=== PATIENT | female | born 1970 | race American Indian/Alaskan Native ===

== ENCOUNTER 2018-03-10 17:19 | Emergency (ER) | payer SELFPAY ==
[2018-03-10 17:25] VITALS: BP 157/97
[2018-03-10 18:08] LABS: Hematocrit 37.9 % (30.3-42.9); Hemoglobin 12.7 gm/dl (10.1-14.3); Mean Corpuscular HGB Conc 34 % (30-34); Mean Corpuscular Hemoglobin 29 pg (28-32); Mean Corpuscular Volume 87 fl (79-97); Platelet Count 312 K/mm3 (140-440); Red Blood Count 4.33 M/mm3 (3.65-5.03); Red Cell Distribution Width 15.9 % (13.2-15.2)
[2018-03-10 18:18] LABS: INR 0.96 (0.87-1.13)
[2018-03-10 18:19] LABS: Partial Thromboplastin Time 30.7 Sec. (24.2-36.6)
[2018-03-10 18:32] LABS: BUN/Creatinine Ratio 10; Blood Urea Nitrogen 9 mg/dL (7-17); Calcium 9.2 mg/dL (8.4-10.2); Hemolysis Index 3
[2018-03-10 19:07] LABS: Total Cells Counted 100
[2018-03-10 19:08] LABS: Anisocytosis Few; Target Cells Few
--- NOTE | 2018-03-10 19:10 | Cat Scan Report ---
FINAL REPORT EXAM: CT HEAD/BRAIN WO CON HISTORY: headache, dizziness, blurred vision in right eye TECHNIQUE: Standard unenhanced CT of the head at 5.0 millimeter axial increments. PRIORS: None. FINDINGS: The ventricular system is normal in size and configuration. There is no evidence for parenchymal volume loss. There is no evidence for mass lesion, mass effect, midline shift, acute intracranial hemorrhage, or acute ischemia/ infarction. No evidence for acute skull fracture is seen. No abnormality in the overlying scalp soft tissues is seen. Visualized paranasal sinuses demonstrates mucosal thickening in the right maxillary and right ethmoid sinuses. IMPRESSION: Chronic sinusitis of the right maxillary and ethmoid sinuses. No acute intracranial process noted.
[2018-03-10] MEDS ORDERED: TYLENOL PO ONE (21:18)
[2018-03-10] MEDS ORDERED: COMPAZINE PO ONE (21:18)
[2018-03-10] MEDS ORDERED: MOTRIN PO ONE (21:18)
[2018-03-10] MEDS ORDERED: NORVASC PO ONE (21:30)
--- NOTE | 2018-03-10 22:50 | Emergency Department Report ---
ED General Adult HPI - General Chief complaint: Headache Stated complaint: HEADACHE/SOB Time Seen by Provider: 03/10/18 21:03 Source: patient Mode of arrival: Ambulatory Limitations: No Limitations - History of Present Illness Initial comments: 1 week of frontal and posterior progressive onset headache. Similar to previous. No light or sound sensitivity. History of migraines. She says sometimes her right eye will get blurry when the pain is bad. Of note, patient also endorses substernal nonradiating chest pain for the past 2-3 weeks. It is intermittent. Pleuritic. Nonexertional. Unaffected by food. Patient smokes one pack per day. She has no family history of ACS or CVA. She has history of hypertension, but is not taking any blood pressure medication at this time. She believes that she used to take amlodipine. Severity scale (0 -10): 8 - Related Data Previous Rx's Medication Instructions Recorded Last Taken Type amLODIPine [Norvasc] 5 mg PO DAILY #30 tab 03/11/18 Unknown Rx Allergies Allergy/AdvReac Type Severity Reaction Status Date / Time No Known Allergies Allergy Verified 03/10/18 21:21 ED Review of Systems ROS: Stated complaint: HEADACHE/SOB Other details as noted in HPI Comment: All other systems reviewed and negative Eyes: vision change Cardiovascular: chest pain Neurological: headache ED Past Medical Hx - Past Medical History Previous Medical History?: Yes Hx Hypertension: Yes Hx Psychiatric Treatment: Yes (bipolar II, PTSD, personality do) Additional medical history: uterine CA - Surgical History Past Surgical History?: No Additional Surgical History: surgery for uterine CA - Social History Smoking Status: Current Every Day Smoker - Medications Home Medications: Home Medications Medication Instructions Recorded Confirmed Last Taken Type amLODIPine [Norvasc] 5 mg PO DAILY #30 tab 03/11/18 Unknown Rx ED Physical Exam - General Limitations: No Limitations General appearance: alert, in no apparent distress - Head Head exam: Present: atraumatic, normocephalic - Eye Eye exam: Present: normal appearance - ENT ENT exam: Present: mucous membranes moist - Neck Neck exam: Present: normal inspection - Respiratory Respiratory exam: Present: normal lung sounds bilaterally. Absent: respiratory distress - Cardiovascular Cardiovascular Exam: Present: regular rate, normal rhythm. Absent: systolic murmur, diastolic murmur, rubs, gallop - GI/Abdominal GI/Abdominal exam: Present: soft, normal bowel sounds. Absent: distended, tenderness, guarding, rebound - Extremities Exam Extremities exam: Present: normal inspection - Back Exam Back exam: Present: normal inspection - Neurological Exam Neurological exam: Present: alert, oriented X3, CN II-XII intact. Absent: motor sensory deficit - Psychiatric Psychiatric exam: Present: normal affect, normal mood - Skin Skin exam: Present: warm, dry, intact, normal color. Absent: rash ED Course Vital Signs 03/10/18 03/10/18 17:21 21:54 Temperature 97.8 F Pulse Rate 91 H Respiratory 20 Rate Blood Pressure 157/97 O2 Sat by Pulse 100 99 Oximetry - Reevaluation(s) Reevaluation #1: On reevaluation, patient feels much improved. She is cleared for discharge. Has been given a prescription for amlodipine to go home with. Patient will follow-up with her family doctor for reevaluation in 3-5 days. 03/11/18 00:21 ED Medical Decision Making - Lab Data Result diagrams: 03/10/18 17:44 03/10/18 17:44 - EKG Data -: EKG Interpreted by Mi EKG shows normal: sinus rhythm, axis, intervals, QRS complexes, ST-T waves Rate: normal - EKG Data Interpretation: no acute changes - Radiology Data Radiology results: report reviewed, image reviewed - Medical Decision Making 47-year-old female with past medical history of hypertension, migraines that presents with headache and chest pain. Vital signs are stable. Patient is well -appearing. No focal neuro deficit appreciated. NIH stroke scale is 0. Visual acuity is at baseline for the patient. CT imaging is unremarkable. EKG is nonischemic. Laboratory doesn't show any evidence of emergent pathology. Low risk by heart score. Low suspicion for ACS. Patient likely is suffering a tension headache. She has been given Tylenol/Motrin/Compazine for her headache. I have low suspicion for CVA event given the patient only ever had right eye blurry vision as a neurologic complaint. It only lasted for a couple minutes when her headache pain was bad. She never had any extremity deficits. History of presentation doesn't appear to be consistent with a central retinal artery occlusion either. Low suspicion for AAA given age, no significant htn, and other dx more likely. - Differential Diagnosis ICH, temporal arteritis, CVA, complex migraine, tension headache Critical care attestation.: If time is entered above; I have spent that time in minutes in the direct care of this critically ill patient, excluding procedure time. ED Disposition Clinical Impression: Tension headache, Chest pain, Hypertension Disposition: TO HOME OR SELFCARE Is pt being admited?: No Does the pt Need Aspirin: No Condition: Stable Instructions: Chest Pain (ED), Tension Headache (ED), Hypertension (ED) Prescriptions: amLODIPine [Norvasc] 5 mg PO DAILY #30 tab Referrals: PRIMARY CARE, [Primary Care Provider] - 3-5 Days
== END 2018-03-11 01:42 | disposition home or self-care (01) ==
LOC: ED 17:19
DX: G44.209 Tension-type headache, unspecified, not intractable (principal); R07.89 Other chest pain; I10 Essential (primary) hypertension; F17.200 Nicotine dependence, unspecified, uncomplicated; F43.10 Post-traumatic stress disorder, unspecified; F31.81 Bipolar II disorder
CPT/HCPCS: 36415; 70450; 80048; 84484; 85007; 85025; 85610; 85670; 85730; 93005; 93010; Q0164

== ENCOUNTER 2018-09-08 20:11 | Emergency (ER) | payer SELFPAY ==
[2018-09-08] MEDS ORDERED: TORADOL IV ONE (20:35)
[2018-09-08] MEDS ORDERED: ZOFRAN IV ONE (20:35)
[2018-09-08] MEDS ORDERED: NACL 0.9% 500 ML 500 ML IV ONE (21:04)
[2018-09-08 21:23] LABS: Hematocrit 39.9 % (30.3-42.9); Hemoglobin 13.7 gm/dl (10.1-14.3); Mean Corpuscular HGB Conc 34 % (30-34); Mean Corpuscular Volume 86 fl (79-97); Platelet Count 274 K/mm3 (140-440); Red Blood Count 4.64 M/mm3 (3.65-5.03); Red Cell Distribution Width 17.3 % (13.2-15.2)
[2018-09-08 21:43] LABS: INR 1.09 (0.87-1.13); Partial Thromboplastin Time 31.3 Sec. (24.2-36.6)
[2018-09-08 22:00] LABS: Alanine Aminotransferase 7 units/L (7-56); Albumin 4.9 g/dL (3.9-5); BUN/Creatinine Ratio 13; Blood Urea Nitrogen 13 mg/dL (7-17); Calcium 9.9 mg/dL (8.4-10.2); Hemolysis Index 20
[2018-09-08] MEDS ORDERED: DILAUDID IV ONE (22:01)
--- NOTE | 2018-09-08 22:26 | Emergency Department Report ---
ED General Adult HPI - General Chief complaint: Back Pain/Injury Stated complaint: BILAT SIDE & BACK PAIN Time Seen by Provider: 09/08/18 20:56 Source: patient, EMS (ems notes not available at time of chart dictation), RN notes reviewed Mode of arrival: Stretcher Limitations: No Limitations - History of Present Illness Initial comments: This is a 47-year-old female who is not known to this provider previously. She does not have a local primary care doctor. She has a history of hypertension. She reports no history of abdominal surgeries. She presents to the emergency room with 3 days of abdominal pain. The abdominal pain started in the left f lank, left upper quadrant, then moved across the epigastric region and then moved to the right upper quadrant. Pain is described as spasming in nature, and was relieved with ketorolac, which was given prior to my evaluation. The patient denies DVT, pulmonary embolus risk factors. She couldn't denies headache, neck pain, chest pain, urinary symptoms, extremity weakness, numbness. The patient reports intermittent extremity cramping as well. She also describes charley horses. This has been going on for a while. It is not new, worsening or different. -: Gradual, days(s) Location: abdomen Radiation: abdomen Severity scale (0 -10): 10 Quality: aching Consistency: now resolved Improves with: medication Worsens with: none Associated Symptoms: other (see history of present illness). denies: confusion, chest pain, cough, diaphoresis, fever/chills, headaches, loss of appetite, malaise, nausea/vomiting, rash, seizure, shortness of breath, syncope, weakness - Related Data Previous Rx's Medication Instructions Recorded Last Taken Type Acetaminophen [Tylenol Arthritis] 650 mg PO Q6HR PRN #30 tablet.er 09/09/18 Unkn own Rx Famotidine [Pepcid] 20 mg PO BID #30 tablet 09/09/18 Unknown Rx Ibuprofen [Motrin] 600 mg PO Q8H PRN #30 tablet 09/09/18 Unknown Rx amLODIPine [Norvasc] 5 mg PO DAILY #30 tab 09/09/18 Unknown Rx Allergies Allergy/AdvReac Type Severity Reaction Status Date / Time No Known Allergies Allergy Verified 03/10/18 21:21 ED Review of Systems ROS: Stated complaint: BILAT SIDE & BACK PAIN Other details as noted in HPI Constitutional: denies: fever, malaise Eyes: denies: vision change ENT: denies: epistaxis Respiratory: denies: cough Cardiovascular: denies: chest pain Gastrointestinal: abdominal pain Genitourinary: denies: dysuria Musculoskeletal: arthralgia, myalgia Skin: denies: lesions Neurological: denies: weakness Psychiatric: denies: anxiety ED Past Medical Hx - Past Medical History Hx Hypertension: Yes Hx Psychiatric Treatment: Yes (bipolar II, PTSD, personality do) Additional medical history: uterine CA, Kidney Cysts - Surgical History Additional Surgical History: surgery for uterine CA - Social History Smoking Status: Current Every Day Smoker Substance Use Type: Marijuana - Medications Home Medications: Home Medications Medication Instructions Recorded Confirmed Last Taken Type Acetaminophen [Tylenol Arthritis] 650 mg PO Q6HR PRN #30 tablet.er 09/09/18 Unknown Rx Famotidine [Pepcid] 20 mg PO BID #30 tablet 09/09/18 Unknown Rx Ibuprofen [Motrin] 600 mg PO Q8H PRN #30 tablet 09/09/18 Unknown Rx amLODIPine [Norvasc] 5 mg PO DAILY #30 tab 09/09/18 Unknown Rx ED Physical Exam - General Limitations: No Limitations General appearance: alert, in no apparent distress - Head Head exam: Present: atraumatic, normocephalic - Eye Eye exam: Present: normal appearance, EOMI. Absent: nystagmus - ENT ENT exam: Present: normal exam, normal orophraynx, mucous membranes moist, normal external ear exam - Neck Neck exam: Present: normal inspection, full ROM. Absent: tenderness, meningismus - Respiratory Respiratory exam: Present: normal lung sounds bilaterally. Absent: respiratory distress - Cardiovascular Cardiovascular Exam: Present: regular rate, normal rhythm, normal heart sounds. Absent: bradycardia, tachycardia, irregular rhythm, systolic murmur, diastolic murmur, rubs, gallop - GI/Abdominal GI/Abdominal exam: Present: soft. Absent: distended, tenderness, guarding, rebound, rigid, pulsatile mass - Extremities Exam Extremities exam: Present: normal inspection, full ROM, other (2+ pulses noted in the bilateral upper, lower extremities. Compartments soft. No long bony tenderness. The pelvis is stable.). Absent: pedal edema, joint swelling, calf tenderness - Back Exam Back exam: Present: normal inspection, full ROM. Absent: tenderness, CVA tenderness (R), paraspinal tenderness, vertebral tenderness - Neurological Exam Neurological exam: Present: alert, oriented X3, CN II-XII intact, other (Extraocular movements intact. Tongue midline. No facial droop. Facial sensation intact to light touch in the V1, V2, V3 distribution bilaterally. 5 and 5 strength in 4 extremities.. Sensation is intact to light touch in 4 extremities.). Absent: motor sensory deficit - Psychiatric Psychiatric exam: Present: normal affect, normal mood - Skin Skin exam: Present: warm, dry, intact, normal color. Absent: rash ED Course Vital Signs 09/08/18 09/08/18 09/08/18 18:35 20:18 20:28 Temperature 97.8 F Pulse Rate 60 73 Respiratory 13 20 Rate Blood Pressure 119/52 180/89 180/89 O2 Sat by Pulse 100 99 100 Oximetry 09/08/18 09/08/18 09/08/18 20:30 20:45 21:00 Temperature Pulse Rate 69 72 76 Respiratory 17 15 18 Rate Blood Pressure 180/89 172/85 172/85 O2 Sat by Pulse 95 95 99 Oximetry 09/08/18 09/08/18 09/08/18 21:15 21:30 21:46 Temperature Pulse Rate 74 88 97 H Respiratory 14 18 20 Rate Blood Pressure 167/96 172/85 145/71 O2 Sat by Pulse 98 98 71 L Oximetry 09/08/18 22:00 Temperature Pulse Rate 109 H Respiratory 27 H Rate Blood Pressure 167/96 O2 Sat by Pulse 98 Oximetry - Reevaluation(s) Reevaluation #1: 09/08/18 22:24 Differential diagnosis, including but not limited to: GERD, gastritis, pancreatitis, hiatal hernia, constipation, electrolyte derangement, irritable bowel syndrome, obstruction, infectious abdominal pain Assessment and plan: 47-year-old female, with no DVT or pulmonary embolus risk factors, who is low risk by well's criteria, who is perc negative with resolved abdominal pain. The patient is afebrile, with reassuring vital signs with the exception of hypertension, elevated blood pressure. Please reference the [employer] clinical policy of hypertension which is not acutely symptomatic. Screening laboratory studies so far unremarkable. Patient is afebrile and otherwise appears quite comfortable. Urinalysis pending, CT scan of the abdomen and pelvis is pending. Doubt acute emergent condition at this point in time. 09/08/18 22:25 Reevaluation #2: 09/08/18 23:32 Laboratory studies unremarkable. Walking with a steady gait. Urinalysis pending. CT scan of the abdomen and pelvis is negative for acute disease. Reevaluation #3: 09/09/18 00:25 Tachycardia resolved. Laboratory testing unremarkable. Patient no distress. Patient counseled to discontinue cannabis consumption. She is clinically sober at this time. She can follow up with an outpatient primary care doctor for her chronic hypertension, and acute on chronic abdominal pain. ED Medical Decision Making - Lab Data Result diagrams: 09/08/18 21:11 09/08/18 21:11 Vital Signs 09/08/18 09/08/18 09/08/18 18:35 20:18 20:28 Temperature 97.8 F Pulse Rate 60 73 Respiratory 13 20 Rate Blood Pressure 119/52 180/89 180/89 O2 Sat by Pulse 100 99 100 Oximetry 09/08/18 09/08/18 09/08/18 20:30 20:45 21:00 Temperature Pulse Rate 69 72 76 Respiratory 17 15 18 Rate Blood Pressure 180/89 172/85 172/85 O2 Sat by Pulse 95 95 99 Oximetry 09/08/18 09/08/18 09/08/18 21:15 21:30 21:46 Temperature Pulse Rate 74 88 97 H Respiratory 14 18 20 Rate Blood Pressure 167/96 172/85 145/71 O2 Sat by Pulse 98 98 71 L Oximetry 09/08/18 22:00 Temperature Pulse Rate 109 H Respiratory 27 H Rate Blood Pressure 167/96 O2 Sat by Pulse 98 Oximetry Lab Results 09/08/18 09/08/18 09/08/18 Range/Units 21:11 21:11 21:11 WBC 9.6 (4.5-11.0) K/mm3 RBC 4.64 (3.65-5.03) M/mm3 Hgb 13.7 (10.1-14.3) gm/dl Hct 39.9 (30.3-42.9) % MCV 86 (79-97) fl MCH 30 (28-32) pg MCHC 34 (30-34) % RDW 17.3 H (13.2-15.2) % Plt Count 274 (140-440) K/mm3 PT (12.2-14.9) Sec. INR (0.87-1.13) APTT (24.2-36.6) Sec. Sodium 142 (137-145) mmol/L Potassium 4.2 (3.6-5.0) mmol/L Chloride 103.0 (98-107) mmol/L Carbon Dioxide 26 (22-30) mmol/L Anion Gap 17 mmol/L BUN 13 (7-17) mg/dL Creatinine 1.0 (0.7-1.2) mg/dL Estimated GFR > 60 ml/min BUN/Creatinine Ratio 13 % Glucose 87 (65-100) mg/dL Calcium 9.9 (8.4-10.2) mg/dL Total Bilirubin 0.50 (0.1-1.2) mg/dL AST 21 (5-40) units/L ALT 7 (7-56) units/L Alkaline Phosphatase 114 (35-129) units/L Total Creatine Kinase 626 H (30-135) units/L Total Protein 7.8 (6.3-8.2) g/dL Albumin 4.9 (3.9-5) g/dL Albumin/Globulin Ratio 1.7 % Lipase 24 (13-60) units/L HCG, Quant 1.55 (0-4) mIU/mL 09/08/18 Range/Units 21:11 WBC (4.5-11.0) K/mm3 RBC (3.65-5.03) M/mm3 Hgb (10.1-14.3) gm/dl Hct (30.3-42.9) % MCV (79-97) fl MCH (28-32) pg MCHC (30-34) % RDW (13.2-15.2) % Plt Count (140-440) K/mm3 PT 14.8 (12.2-14.9) Sec. INR 1.09 (0.87-1.13) APTT 31.3 (24.2-36.6) Sec. Sodium (137-145) mmol/L Potassium (3.6-5.0) mmol/L Chloride (98-107) mmol/L Carbon Dioxide (22-30) mmol/L Anion Gap mmol/L BUN (7-17) mg/dL Creatinine (0.7-1.2) mg/dL Estimated GFR ml/min BUN/Creatinine Ratio % Glucose (65-100) mg/dL Calcium (8.4-10.2) mg/dL Total Bilirubin (0.1-1.2) mg/dL AST (5-40) units/L ALT (7-56) units/L Alkaline Phosphatase (35-129) units/L Total Creatine Kinase (30-135) units/L Total Protein (6.3-8.2) g/dL Albumin (3.9-5) g/dL Albumin/Globulin Ratio % Lipase (13-60) units/L HCG, Quant (0-4) mIU/mL - EKG Data -: EKG Interpreted by Ok EKG shows normal: sinus rhythm Rate: normal - EKG Data When compared to previous EKG there are: no significant change Interpretation: no acute changes, unchanged when compared t 09/08/18 22:26 Sinus, 71 bpm, left axis deviation, left anterior fascicular block, QTC prolonged, high left ventricular voltage, incomplete right bundle branch block, abnormal EKG, not consistent with ST elevation myocardial infarction, appears unchanged from prior EKG from February 2018. - Radiology Data Radiology results: pending, report reviewed, image reviewed Referring Physician: FILI WEAVER Patient Name: ARIADNE JUAN Date of : 1970 Sex: Female Report Date: 2018-09-08 Report Status: [place] [address] Cat Scan Report Signed Patient: ARIADNE JUAN MR#: [id number] : 1970 Acct:[id number] Age/Sex: 47 / F ADM Date: 09/08/18 Loc: ED Attending Dr: Ordering Physician: FILI WEAVER MD Date of Service: 09/08/18 Procedure(s): CT abdomen pelvis w con Accession Number(s): [id number] cc: FILI WEAVER MD FINAL REPORT PROCEDURE: CT ABDOMEN PELVIS W CON TECHNIQUE: Computerized axial tomography of the abdomen and pelvis was performed after the IV injection of iodinated nonionic contrast. HISTORY: abd pain COMPARISON: No prior studies are available for comparison. FINDINGS: Liver, spleen, and adrenal glands are within normal limits. Bilateral kidneys demonstrate uniform enhancement without hydronephrosis. Urinary bladder is mildly filled with normal outlines. Aorta is of normal caliber. There is no free fluid or free air. Gallbladder is unremarkable. Small bowel loops are within normal limits. Appendix is normal. Vertebral height is normal. IMPRESSION: No acute intra-abdominal or pelvic pathology Transcribed By: [facility] Dictated By: ZARI JAEGER Electronically Authenticated By: ZARI JAEGER Signed Date/Time: 09/08/18 8496 Critical care attestation.: If time is entered above; I have spent that time in minutes in the direct care of this critically ill patient, excluding procedure time. ED Disposition Clinical Impression: Abdominal pain, Elevated blood pressure reading Disposition: DC-01 TO HOME OR SELFCARE Is pt being admited?: No Does the pt Need Aspirin: No Condition: Stable Instructions: Hypertension (ED), Abdominal Pain (ED) Additional Instructions: Take the pain medication as needed/directed. Follow up with the primary care doctor within the next month. Please note that EKG showed nonspecific abnormalities, unchanged from prior EKG from february 2018, and patient was found to have hypertension, elevated blood pressure. The patient should follow-up for both of these things within the next 4-6 weeks. Long-term complications of hypertension and elevated blood pressure include stroke, heart attack, disability, paralysis, loss of quality of life. Please return to the emergency room right away with new, worsening or different symptoms. I recommend that the patient discontinue tobacco and cannabis, marijuana consumption, as the marijuana consumption may be contributing to the patient's abdominal pain, and muscular pain. Tobacco consumption is a risk factor for heart attack, stroke and , and the patient will benefit short-term and long-term from tobacco cessation. Referrals: [facility] [Provider Group] - 7-10 days [facility] [Provider Group] - as needed
--- NOTE | 2018-09-08 22:47 | Cat Scan Report ---
FINAL REPORT PROCEDURE: CT ABDOMEN PELVIS W CON TECHNIQUE: Computerized axial tomography of the abdomen and pelvis was performed after the IV inject ion of iodinated nonionic contrast. HISTORY: abd pain COMPARISON: No prior studies are available for comparison. FINDINGS: Liver, spleen, and adrenal glands are within normal limits. Bilateral kidneys demonstrate uniform enh ancement without hydronephrosis. Urinary bladder is mildly filled with normal outlines. Aorta is of n ormal caliber. There is no free fluid or free air. Gallbladder is unremarkable. Small bowel loops are within normal limits. Appendix is normal. Vertebral height is normal. IMPRESSION: No acute intra-abdominal or pelvic pathology
[2018-09-09 00:10] LABS: Bilirubin,Urine NEG (Negative); Blood,Urine NEG (Negative); Color,Urine Yellow (Yellow); Mucus,Urine FEW /HPF; Protein,Urine <15 mg/dL mg/dL (Negative); Urobilinogen,Urine < 2.0 mg/dL (<2.0)
[2018-09-09 00:28] VITALS: BP 102/89
== END 2018-09-09 00:45 | disposition home or self-care (01) ==
LOC: ED 20:11
DX: R10.13 Epigastric pain (principal); I10 Essential (primary) hypertension; F31.9 Bipolar disorder, unspecified; F17.200 Nicotine dependence, unspecified, uncomplicated; F12.10 Cannabis abuse, uncomplicated
CPT/HCPCS: 36415; 74177; 80053; 81001; 82550; 83690; 83735; 84702; 85027; 85610; 85730; 93005; 93010; 96374; 96375; 99284; J1170; J1885; J2405; J7040; Q9967

== ENCOUNTER 2020-10-31 21:25 | Emergency (ER) | payer SELFPAY ==
[2020-10-31 22:36] VITALS: BP 147/79
[2020-10-31] MEDS ORDERED: HYDROcodone/ACETAMINOPHEN 10-325MG TAB PO ONE (23:20)
[2020-10-31] MEDS ORDERED: KETOROLAC 60 MG/2 ML INJ IM ONE (23:20)
[2020-10-31] MEDS ORDERED: predniSONE 20 MG TAB PO ONE (23:41)
--- NOTE | 2020-11-01 00:18 | Emergency Department Report ---
ED Back Pain/Injury HPI - General Chief Complaint: Back Pain/Injury Stated Complaint: LEFT SIDE/LEG PAIN/NUMBNESS Time Seen by Provider: 10/31/20 23:16 Source: patient Limitations: No Limitations - History of Present Illness Initial Comments: This is a 49-year-old female nontoxic, well nourished in appearance, no acute signs of distress presents to the ED with c/o of acute on chronic lower back pain times several years. Patient stated that the past 2 days she was moving furniture and developed this pain. Patient states has history of sciatica nerve pain which is similar symptoms as today. Patient states that pain radiates through to his left lower extremity. Patient describes radiation as lightning/shocking sensation to lower extremity. Patient denies any trauma. Denies any bladder or bowel instability. Patient denies any urinary symptoms. Denies any fever, chills, nausea, vomiting, headache, stiff neck, chest pain or shortness of breath. Patient denies any numbness or tingling. Denies any allergies. MD Complaint: back pain -: days(s) Similar Symptoms Previously: Yes Place: home Radiation: left leg Severity: mild Severity scale (0 -10): 8 Quality: aching Consistency: intermittent Improves With: immobilization, sitting upright Worsens With: movement, walking Context: while lifting, turning/twisting Associated Symptoms: denies other symptoms. denies: confusion, weakness, chest pain, numbness, difficulty walking, cough, difficulty urinating, diaphoresis, incontinence, fever/chills, constipation, headaches, abdominal pain, loss of appetite, malaise, nausea/vomiting, rash, seizure, shortness of breath, syncope - Related Data Previous Rx's Medication Instructions Recorded Last Taken Type Acetaminophen [Tylenol Arthritis] 650 mg PO Q6HR PRN #30 tablet.er 09/09/18 Unknown Rx Famotidine [Pepcid] 20 mg PO BID #30 tablet 09/09/18 Unknown Rx Ibuprofen [Motrin] 600 mg PO Q8H PRN #30 tablet 09/09/18 Unknown Rx amLODIPine 5 mg PO DAILY #30 tab 09/09/18 Unknown Rx Cyclobenzaprine [Flexeril] 10 mg PO QHS PRN #10 tablet 11/01/20 Unknown Rx Naproxen 500 mg PO Q12H PRN #12 tablet 11/01/20 Unknown Rx Allergies Allergy/AdvReac Type Severity Reaction Status Date / Time No Known Allergies Allergy Verified 03/10/18 21:21 ED Review of Systems ROS: Stated complaint: LEFT SIDE/LEG PAIN/NUMBNESS Other details as noted in HPI Comment: All other systems reviewed and negative Constitutional: denies: chills, fever Eyes: denies: eye pain, eye discharge, vision change ENT: denies: ear pain, throat pain Respiratory: denies: cough, shortness of breath, wheezing Cardiovascular: denies: chest pain, palpitations Endocrine: no symptoms reported Gastrointestinal: denies: abdominal pain, nausea, diarrhea Genitourinary: denies: urgency, dysuria, discharge Musculoskeletal: back pain. denies: joint swelling, arthralgia, myalgia Skin: denies: rash, lesions Neurological: denies: headache, weakness, paresthesias Psychiatric: denies: anxiety, depression Hematological/Lymphatic: denies: easy bleeding, easy bruising ED Past Medical Hx - Past Medical History Previous Medical History?: Yes Hx Hypertension: Yes Hx Psychiatric Treatment: Yes (bipolar II, PTSD, personality do) Additional medical history: uterine CA, Kidney Cysts - Surgical History Past Surgical History?: Yes Additional Surgical History: surgery for uterine CA - Social History Smoking Status: Current Every Day Smoker Substance Use Type: Marijuana - Medications Home Medications: Home Medications Medication Instructions Recorded Confirmed Last Taken Type Acetaminophen [Tylenol Arthritis] 650 mg PO Q6HR PRN #30 tablet.er 09/09/18 Unknown Rx Famotidine [Pepcid] 20 mg PO BID #30 tablet 09/09/18 Unknown Rx Ibuprofen [Motrin] 600 mg PO Q8H PRN #30 tablet 09/09/18 Unknown Rx amLODIPine 5 mg PO DAILY #30 tab 09/09/18 Unknown Rx Cyclobenzaprine [Flexeril] 10 mg PO QHS PRN #10 tablet 11/01/20 Unknown Rx Naproxen 500 mg PO Q12H PRN #12 tablet 11/01/20 Unknown Rx ED Physical Exam - General Limitations: No Limitations General appearance: alert, in no apparent distress - Head Head exam: Present: atraumatic, normocephalic - Eye Eye exam: Present: normal appearance - Neck Neck exam: Present: normal inspection, full ROM - Respiratory Respiratory exam: Absent: respiratory distress - Cardiovascular Cardiovascular Exam: Present: regular rate - GI/Abdominal GI/Abdominal exam: Present: soft. Absent: distended, tenderness - Extremities Exam Extremities exam: Present: normal inspection, full ROM, normal capillary refill. Absent: tenderness, joint swelling, calf tenderness - Back Exam Back exam: Present: normal inspection, full ROM, paraspinal tenderness (Left lumbar paraspinal). Absent: tenderness, CVA tenderness (R), CVA tenderness (L), muscle spasm, vertebral tenderness, rash noted - Expanded Back Exam Expanded Back exam: Absent: saddle anesthesia Back exam: Negative Straight Leg Raising: Left, Right - Neurological Exam Neurological exam: Present: alert, oriented X3, normal gait - Psychiatric Psychiatric exam: Present: normal affect, normal mood - Skin Skin exam: Present: warm, dry, intact, normal color. Absent: rash ED Course Vital Signs 10/31/20 22:32 Temperature 98.6 F Pulse Rate 78 Respiratory 16 Rate Blood Pressure 147/79 [Right] O2 Sat by Pulse 97 Oximetry - Reevaluation(s) Reevaluation #1: 11/01/20 00:18 Patient is speaking in full sentences with no signs of distress noted. ED Medical Decision Making - Radiology Data [facility] [address] [place] [address] Cat Scan Report Signed Patient: ARIADNE JUAN MR#: [id number] : 1970 Acct:[id number] Age/Sex: 49 / F ADM Date: 10/31/20 Loc: ED Attending Dr: Ordering Physician: PATRIC CHÁVEZ NP Date of Service: 10/31/20 Procedure(s): CT lumbar spine wo con Accession Number(s): [id number] cc: PATRIC CHÁVEZ NP CT LUMBAR SPINE WITHOUT CONTRAST INDICATION / CLINICAL INFORMATION: Patient complains of low back pain with radiation to LEFT leg. TECHNIQUE: Axial CT images were obtained through the lumbar spine. Sagittal and coronal re formatted images were produced. All CT scans at this location are performed using CT dose reduction for ALARA by means of automated exposure control. COMPARISON: None available. FINDINGS: VERTEBRAE: No significant abnormality. ALIGNMENT: No significant abnormality. DISC SPACES: No significant abnormality. FACET JOINTS: There is mild facet degenerative change at L4-5. SPINAL CANAL: No significant abnormality. SACRUM:No significant abnormality of the visualized sacrum. PARASPINAL SOFT TISSUES: No significant abnormality. ADDITIONAL FINDINGS: None. IMPRESSION: 1. There is mild facet degenerative change at L4-5. Signer Name: Reza Mason MD Signed: 11/01/2020 12:15 AM Workstation Name: [id number] Transcribed By: Dictated By: Reza Mason MD Electronically Authenticated By: Reza Mason MD Signed Date/Time: 11/01/2014 DD/ TD/TT: - Medical Decision Making This is a 49-year-old female that presents with low back strain with sciatica. Patient is stable was examined by me. Patient is notified of the CT results with no questions noted by the patient. There is no spinal tenderness. There is no cauda equina syndrome during examination. No bladder or bowel instability. Patient received Toradol 60 mg IM, prednisone, and [place] in the ED which stated that his symptoms has resolved and subsided. Patient is discharged with muscle relaxant and naproxen. Patient was instructed not to operate any machinery while taking muscle relaxant as they cause her drowsiness. Patient was referred to Follow-up with a primary care doctor in 3-5 days or if symptoms worsen and continue return to emergency room as soon as possible. At time of discharge, the patient does not seem toxic or ill in appearance. No acute signs of distress noted. Patient agrees to discharge treatment plan of care. No further questions noted by the patient. This chart is dictated with using [employer] Critical care attestation.: If time is entered above; I have spent that time in minutes in the direct care of this critically ill patient, excluding procedure time. ED Disposition Clinical Impression: Low back strain Qualifiers: Encounter type: initial encounter Qualified Code(s): S39.012A - Strain of muscle, fascia and tendon of lower back, initial encounter Chronic lower back pain Qualifiers: Back pain laterality: left Sciatica presence: with sciatica Sciatica laterality: sciatica of left side Qualified Code(s): M54.42 - Lumbago with sciatica, left side; G89.29 - Other chronic pain Disposition: - TO HOME OR SELFCARE Is pt being admited?: No Does the pt Need Aspirin: No Condition: Stable Instructions: Chronic Back Pain, Cyclobenzaprine tablets Additional Instructions: Follow-up with your primary care doctor in 3-5 days or if symptoms worsen such as bladder or bowel stability, chest pain, short of breath, numbness or tingling sensation in extremities, headache, dizziness, visual changes, nausea vomiting, or abdominal pain, return back to emergency room as was possible. Take naproxen and Flexeril as prescribed. Do not operate heavy machinery while taking Flexeril due to sedation Prescriptions: Cyclobenzaprine [Flexeril] 10 mg PO QHS PRN #10 tablet PRN Reason: Muscle Spasm Naproxen 500 mg PO Q12H PRN #12 tablet PRN Reason: Pain , Severe (7-10) Referrals: PRIMARY CAREMD [Referring] - 3-5 Days SATINDER SOLIZ MD [Staff Physician] - 3-5 Days Forms: Work/School Release Form(ED) Time of Disposition: 00:42
[2020-11-01] MEDS ORDERED: predniSONE 20 MG TAB PO SCH (10:00)
== END 2020-11-01 00:55 | disposition home or self-care (01) ==
LOC: ED 21:25
DX: S39.012A Strain of muscle, fascia and tendon of lower back, initial encounter (principal); I10 Essential (primary) hypertension; F31.9 Bipolar disorder, unspecified; F17.200 Nicotine dependence, unspecified, uncomplicated; F12.10 Cannabis abuse, uncomplicated; Z98.890 Other specified postprocedural states; Z79.1 Long term (current) use of non-steroidal anti-inflammatories (NSAID); Z79.899 Other long term (current) drug therapy; X58.XXXA Exposure to other specified factors, initial encounter; Y93.89 Activity, other specified; Y92.89 Other specified places as the place of occurrence of the external cause; Y99.8 Other external cause status
CPT/HCPCS: 72131; 96372; 99283; J1885; J7512